=== PATIENT | female | born 1965 | race Caucasian/White ===

== ENCOUNTER 2018-07-18 10:39 | Day surgery (SDC) | payer OTHER ==
[~2018-07-18 10:39] MED LIST: LACTATED RINGERS 1,000 ML IV SCH
[2018-07-18 11:00] VITALS: RESP 16; TEMP 98
[2018-07-18] MEDS ORDERED: LIDOCAINE 1% 20 ML VIAL (10MG/ML) FOR IV START INTRADERMA ONE (11:02)
[2018-07-18] MEDS ORDERED: PROPOFOL 10 MG/ML 20 ML VIAL IV ONE (11:36)
[2018-07-18] MEDS ORDERED: LIDOCAINE 1% INJ 10MG/ML (20 ML MDV) ONE (11:36)
--- NOTE | 2018-07-18 12:16 | P.PCN ---
Date of Procedure: 07/18/18 Procedure(s) Performed: Procedures: 1. Esophagogastroduodenoscopy and biopsy. 2. Total colonoscopy. Preoperative diagnosis: Chronic gastroesophageal reflux and screening for colon cancer. Postoperative diagnosis: 1. Small sliding hiatal hernia with no obvious esophagitis or complicated reflux disease. 2. Mild antral gastritis. 3. Normal colon exam. 4. Biopsies obtained from the duodenum, antrum and esophagus. Preparation: HalfLytely prep. Sedation: Was provided by anesthesia. Brief clinical history: The patient is a 52-year-old female who is scheduled for this evaluation for screening for colon cancer as well as because of history of chronic reflux symptoms requiring therapy. This would be her first upper endoscopy and her first colonoscopy. Procedure: With the patient on her left lateral decubitus position and after informed consent and adequate sedation, I passed the Olympus-GIF 190 video upper endoscope through the cricopharyngeus down the esophagus. GE junction was around 38 cm from the incisors and there was a small sliding hiatal hernia but no obvious esophagitis or complicated reflux disease. The endoscope was then passed into the stomach which was insufflated with air and inspected in detail including the retroflex view in the cardia. There was some mottling and erythema in the antrum but no ulcers or erosions. Pyloric channel, duodenal bulb, post bulbar area and descending duodenum appeared within normal limits. I obtained biopsies from the duodenum, antrum and esophagus then the endoscope was withdrawn and I proceeded with the colonoscopy. Perianal area did not show any fissures or fistulas. There were no masses felt on digital rectal examination. The Olympus CFH 190L video colonoscope was then inserted in the rectum in the usual fashion and advanced to the cecum. The mucosa appeared healthy. No polyps or tumors were seen or any obvious diverticular disease or other pathology. I retroflexed the endoscope in the rectum before the endoscope was withdrawn. The patient tolerated the procedure well. Plan: The patient was reassured. Will await biopsy results and make further plans based on her course and biopsy results. I anticipate repeating her colonoscopy in 10 years.
[2018-07-18 12:28] VITALS: BP 106/69; PULSE 73
== END 2018-07-18 13:05 | disposition home or self-care (01) ==
LOC: ORWHC2ENDO 10:39
DX: Z12.11 Encounter for screening for malignant neoplasm of colon (principal); K29.50 Unspecified chronic gastritis without bleeding; K21.9 Gastro-esophageal reflux disease without esophagitis; K44.9 Diaphragmatic hernia without obstruction or gangrene; Z79.899 Other long term (current) drug therapy
CPT/HCPCS: 81025; 88305; 43239; J2001; J2704; G0121; 45378

== ENCOUNTER → 2020-02-01 | Outpatient (CLI) | payer OTHER ==
--- NOTE | 2020-02-01 12:56 | US ---
EXAMINATION TYPE: US thyroid st tissue head/neck DATE OF EXAM: 02/01/2020 COMPARISON: NONE CLINICAL HISTORY: I881 LYMPHADENITIS. Palpable area left neck per patient GLAND SIZE: Right Lobe: 3.8 x 1.0 x 1.1 cm Overall Parenchyma: homogenous Left Lobe: 4.2 x 0.8 x 1.1 cm Overall Parenchyma: homogeneous Isthmus Thickness: 0.3 cm NODULES RIGHT: # of nodules measured on right: 0 LEFT: # of nodules measured on left: 0 ISTHMUS: # of nodules measured in the isthmus: 0 Bilateral neck scanned, no evidence of lymphadenopathy. Palpable area scanned left neck near the submandibular area, no sonographic abnormality visualized IMPRESSION: No sonographic abnormality identified overlying the palpable abnormality. No sizable thyroid nodules. Correlate clinically.
== END | disposition home or self-care (01) ==
LOC: RADUSWWP 11:59
PROVIDERS: ATTEND Family Medicine
DX: L04.0 Acute lymphadenitis of face, head and neck (principal)
CPT/HCPCS: 76536

== ENCOUNTER → 2020-03-05 | Outpatient (CLI) | payer OTHER ==
--- NOTE | 2020-03-05 08:48 | CT ---
EXAMINATION TYPE: CT facial bones wo con DATE OF EXAM: 03/05/2020 COMPARISON: NONE HISTORY: Allergic rhinitis per order, headache with constant nasal drainage per patient CT DLP: 558.0 mGycm. Automated Exposure Control for Dose Reduction was Utilized. TECHNIQUE: CT scan of the sinuses is performed without contrast, axial images are obtained, coronal r eformatted images are also reviewed. FINDINGS: There is roughly 2.8 cm mucous retention cyst or polyp occupying inferior posterior aspect of the right maxillary sinus. There is additional small 8 to 9 mm mucous retention cyst or polyp in t he lateral aspect of the right sphenoid sinus. Remainder paranasal sinuses are clear. Ostiomeatal com plexes patent bilaterally on coronal image 13. Right maxillary molar teeth have some protrusion into the inferior right maxillary sinus. This is seen best on axial image 6. Nasal meatus appear symmetric and patent. Nasal septum slightly deviated to right of midline. No obvi ous bony destruction noted. Visualized portion of mastoid air cells show no abnormal opacification. The globes are intact bilate rally. Visualized brain parenchyma unremarkable. No acute displaced facial bone fracture present. IMPRESSION: As above. Source of patient's symptoms not identified.
== END | disposition home or self-care (01) ==
LOC: RADCTMAIN 07:44
PROVIDERS: ATTEND Family Medicine
DX: K08.89 Other specified disorders of teeth and supporting structures (principal); J30.9 Allergic rhinitis, unspecified
CPT/HCPCS: 70486

== ENCOUNTER → 2022-02-10 | Outpatient (CLI) | payer OTHER ==
--- NOTE | 2022-02-10 10:23 | XR ---
EXAMINATION TYPE: XR cervical spine comp DATE OF EXAM: 02/10/2022 COMPARISON: 09/04/2015 HISTORY: Increasing chronic neck pain TECHNIQUE: 5 view cervical spine FINDINGS: Odontoid is limited with overlying occiput. Mild foraminal narrowing at C6-7 on the left ma y be present. This could be due to degree of rotation on this image. Main foramen appear patent. Prev ertebral space is normal. Posterior spinal lamellar line is intact. Vertebral body heights are preser nagi. There is narrowing of disc height at C5-6. IMPRESSION: 1. Mild degenerative disc changes C5-6. 2. There may be some mild left foraminal narrowing present at C6-7. 3. MRI could be performed if additional evaluation would be of benefit
--- NOTE | 2022-02-10 10:27 | XR ---
EXAMINATION TYPE: XR shoulder complete LT DATE OF EXAM: 02/10/2022 COMPARISON: NONE HISTORY: Pain TECHNIQUE: Shoulder examined in 3 projections FINDINGS: The humeral head articulates with the glenoid. The acromio-clavicular junction is normal. No acute fractures or dislocations are evident. A follow up study can be performed 7-10 days from acute trauma for continued pain. IMPRESSION: 1. No acute osseous abnormality left shoulder
== END | disposition home or self-care (01) ==
LOC: RADXRYALE 09:13
PROVIDERS: ATTEND Family Medicine
DX: M25.512 Pain in left shoulder (principal); M54.2 Cervicalgia
CPT/HCPCS: 72050

== ENCOUNTER → 2022-03-06 | Outpatient (CLI) | payer OTHER ==
--- NOTE | 2022-03-06 15:53 | MR ---
EXAMINATION TYPE: MR cervical spine wo con DATE OF EXAM: 03/06/2022 COMPARISON: None HISTORY: CERVICALGIA CONTRAST: Performed utilizing both mL intravenous Gadavist gadolinium contrast. TECHNIQUE: Multiplanar multiecho imaging on a 3.0 Jeannette magnet is performed through the cervical spin e. FINDINGS: The craniovertebral junction is normal. Vertebral body alignment is normal. C7-T1: No focal disc herniation or significant disc bulge is evident. No spinal canal stenosis or n eural foraminal stenosis is present. C6-7: No focal disc herniation or significant disc bulge is evident. No spinal canal stenosis or taniya ral foraminal stenosis is present. C5-6: No focal disc herniation or significant disc bulge is evident. No spinal canal stenosis or taniya ral foraminal stenosis is present. C4-5: Minimal central focal bulge has mild intrathecal sac compression. No cord contact is evident. N o spinal canal stenosis or neural foraminal stenosis is present.. C3-4: No focal disc herniation or significant disc bulge is evident. Mild disc space narrowing is pr esent. No spinal canal stenosis or neural foraminal stenosis is present. C2-3: No focal disc herniation or significant disc bulge is evident. No spinal canal stenosis or taniya ral foraminal stenosis is present. IMPRESSIONS: 1. Small focal protrusion T4-5 with mild anterior thecal sac compression. 2. Mild degenerative disc changes with narrowing of disc height C5-6.
== END | disposition home or self-care (01) ==
LOC: RADMRIMAIN 10:19
PROVIDERS: ATTEND Family Medicine
DX: M50.30 Other cervical disc degeneration, unspecified cervical region (principal); M43.03 Spondylolysis, cervicothoracic region
CPT/HCPCS: 72141